=== PATIENT | male | born 1990 | race Caucasian/White ===

== ENCOUNTER 2021-06-14 18:34 | Emergency (ER) | payer OTHER ==
[~2021-06-14] VITALS: Ht 185.4 cm; Wt 108.9 kg
[2021-06-14] MEDS ORDERED: CELEXA10 MG PO (19:18)
[2021-06-14] MEDS ORDERED: ADDERALL 20 MG20 MG PO (19:18)
[2021-06-14 20:30] VITALS: BP 144/99
== END 2021-06-14 20:30 | disposition left against medical advice (07) ==
LOC: M.ERS 18:34
DX: R41.82 Altered mental status, unspecified (principal); Z53.21 Procedure and treatment not carried out due to patient leaving prior to being seen by health care provider

== ENCOUNTER 2021-06-20 19:58 | Emergency (ER) | payer OTHER ==
[~2021-06-20] VITALS: Ht 185.4 cm; Wt 104.3 kg
[~2021-06-20 19:58] MED LIST: ADDERALL 20 MG20 MG PO; CELEXA10 MG PO
[2021-06-20 20:46] LABS: URINE BILIRUBIN NEGATIVE (Negative); URINE BLOOD NEGATIVE (Negative); URINE CLARITY CLEAR; URINE COLOR YELLOW; URINE GLUCOSE-RANDOM NEGATIVE (Negative); URINE KETONES 1+ (Negative); URINE LEUKOCYTES-REFLEX NEGATIVE (Negative); URINE NITRITE-REFLEX NEGATIVE (Negative); URINE PROTEIN TRACE (Negative); URINE UROBILINOGEN 0.2 E.U./dl (0.2-1.0)
[2021-06-20 20:56] LABS: AMP/METHAMP POSITIVE (Negative); BARBITURATES Negative (Negative); BENZODIAZEPINES Negative (Negative); COCAINE Negative (Negative); METHADONE Negative (Negative); OPIATES Negative (Negative); PCP Negative (Negative); THC POSITIVE (Negative)
[2021-06-20 21:27] LABS: ABSOLUTE BASOPHILS 0.1 thou/uL (0.0-0.2); ABSOLUTE LYMPHOCYTES 2.3 thou/uL (0.8-5.3); ABSOLUTE MONOCYTES 0.8 thou/uL (0.0-1.2); BASOPHILS 1.2 %; EOSINOPHILS 0.2 %; HEMATOCRIT 42.1 % (42.0-52.0); MCH 27.4 pg (26.0-34.0); MCHC 33.2 g/dL (28.0-37.0); MCV 82.5 fL (80.0-100.0); MONOCYTES 6.5 %; MPV 8.2 fl. (7.2-11.1); NUCLEATED RBCS 0 /100WBC; PLATELET COUNT* 319 thou/uL (150-400); POLYS 73.1 %; RBC 5.11 mil/uL (4.50-6.00); RDW-CV 13.7 % (10.5-14.5); WBC 12.3 thou/uL (4.0-11.0)
[2021-06-20 21:36] LABS: CALCIUM 9.4 mg/dL (8.5-10.1); CREATININE 1.2 mg/dL (0.6-1.3); POTASSIUM 4.2 mmol/L (3.5-5.1)
[2021-06-20 21:41] LABS: ALBUMIN 4.8 g/dL (3.4-5.0); TOTAL BILIRUBIN 0.6 mg/dL (<0.1-1.0); TOTAL PROTEIN 7.9 g/dL (6.4-8.2)
[2021-06-20 21:47] LABS: ALCOHOL < 10 mg/dL (<10); SALICYLATE < 2.8 mg/dL (2.8-20.0)
[2021-06-20 21:54] LABS: ACETAMINOPHEN < 2 ug/mL (10-30)
--- NOTE | 2021-06-21 09:57 | EKG ---
[place] [address] ELECTROCARDIOGRAM REPORT Name: JULITA ORTEGA Room: [facility]#: [id number] Admission: 06/20/21 Attend Phys: Discharge: Date of : 89 Date of Service: 06/20/212050 Report #: [id number] THIS REPORT FOR: //name// [facility] ED Test Date: 2021-06-20 Test Time: 20:51:58 Pat Name: JULITA ORTEGA Department: Room: Gender: [place]: : 1990 Requested By: Anabel Monson Order Number: [id number] MD: Lyndon Knight Measurements Intervals [place] Rate: 121 P: 72 WI: 158 QRS: 75 QRSD: 96 T: 8 QT: 309 QTc: 439 Interpretive Statements Sinus tachycardia No previous ECG available for comparison Electronically Signed On 06-21-2021 9:57:09 CDT by Lyndon Knight [email or web address] <ELECTRONICALLY SIGNED> By: Lyndon Knight MD, [facility] 06/21/2157 50 50 Lyndon Knight MD, FACC /EPI
[2021-06-21 13:07] VITALS: BP 104/85
== END 2021-06-21 13:07 ==
LOC: M.ERS 19:58
PROVIDERS: Emergency Medicine
DX: F29 Unspecified psychosis not due to a substance or known physiological condition (principal); Z20.822 Contact with and (suspected) exposure to COVID-19; F31.9 Bipolar disorder, unspecified; F41.9 Anxiety disorder, unspecified; Z79.899 Other long term (current) drug therapy